=== PATIENT | male | born 1945 | race Caucasian/White ===

== ENCOUNTER 2018-03-20 12:12 | Emergency (ER) | payer OTHER, BC ==
[~2018-03-20] VITALS: Ht 175.3 cm; Wt 88.0 kg
[~2018-03-20 12:12] MED LIST: ASPI-320 PO; BRIM0.2S18 OPB; CARV6.252 PO; DFL150 PO; LATA0.009 OPB; MAGN500C PO; POTA-74 PO; TIMO0.2534 OPB; TORS20TA2 PO
[2018-03-20 12:17] VITALS: TEMP 37.2; Ht 175.3 cm; Wt 88.0 kg
[2018-03-20 14:30] LABS: MEAN CELL VOLUME 98.6 fL (80-100); MEAN CORPUSCULAR HEMOGLOBIN 32.9 pg (25-34); MEAN CORPUSCULAR HGB CONC 33.3 g/dl (32-36); MEAN PLATELET VOLUME 10.5 fL (7.4-10.4); PLATELET COUNT 188 K/uL (130-400); RED CELL DISTRIBUTION WIDTH CV 14.1 % (11.5-14.5); RED CELL DISTRIBUTION WIDTH SD 50.8 fL (36.4-46.3); WHITE BLOOD COUNT 7.34 K/uL (4.8-10.8)
[2018-03-20] MEDS ORDERED: TMPOPS15 OPB (14:32)
[2018-03-20] MEDS ORDERED: TAMS0.4C38 PO (14:32)
[2018-03-20] MEDS ORDERED: PANT40TA PO (14:32)
[2018-03-20] MEDS ORDERED: SILD1TAB31 PO (14:32)
[2018-03-20] MEDS ORDERED: BRIM0.2S18 OPB (14:32)
[2018-03-20] MEDS ORDERED: AMIO200T4 PO (14:32)
[2018-03-20] MEDS ORDERED: CMD/25 PO (14:32)
[2018-03-20] MEDS ORDERED: ASPI81TA28 PO (14:32)
[2018-03-20] MEDS ORDERED: LATA0.5S OPB (14:32)
[2018-03-20] MEDS ORDERED: METO25TA4 PO (14:32)
[2018-03-20] MEDS ORDERED: BUME1TAB PO (14:32)
[2018-03-20 15:00] LABS: ALBUMIN 3.8 gm/dl (3.4-5.0); CALCIUM 8.5 mg/dl (8.5-10.1); CREATININE 0.97 mg/dl (0.60-1.40); POTASSIUM 4.5 mmol/L (3.5-5.1); TOTAL PROTEIN 7.2 gm/dl (6.4-8.2)
--- NOTE | 2018-03-20 15:27 | Psych Management Progress Note ---
Psychiatry Miscellaneous Date of Service: Mar 20, 2018. Case discussed at the request of Dr. Noel at 1415. Patient in ED on [address] [facility] office. Patient was reportedly discharged from services with [facility] as he wrote angry letters re: his 's care. She has been in/out of the hospital/nursing facilities of [facility] and carries a diagnosis of dementia. He is currently denying suicidal ideation but made provocative statements about cutting wires to his cardiac device and per Dr. Noel also pushed at staff. Per Dr. Noel no psychiatric history or psych meds. Patient admits to some memory difficulties but stressed and no prior dx of dementia per Dr. Noel. ED physician expressed concerns about ability to be hospitalized on a psych unit (if necessary) given circumstances of currently being in hospital and patient has LVAD. No other criteria for a medical admission. Encouraged Dr. Noel to ask to identify family for collateral and to involve with safety planning and that sounded like a referral for [facility]. Contacted Stephanie liaison nurse to check with nursing home social worker logistics of admission with LVAD if does ultimately require psychiatric admission. Approximately 30 min later, received call from Karen Mart, YAKOV stating that CM office was familiar with patient from his 's care and has reason to believe there are guns in home. Liaison in route to notify ED team.
[2018-03-20 16:02] VITALS: BP 127/97; PULSE 78; O2SAT 95
--- NOTE | 2018-03-20 19:21 | EMERGENCY ROOM VISIT NOTE ---
History Report prepared by Allen: Zana Montano Under the Supervision of: Dr. Diego Noel M.D. First contact with patient: 13:10 Chief Complaint: MENTAL HEALTH EVALUATION Stated Complaint: 302 History of Present Illness The patient is a 73 year old male who presents to the Emergency Room with a 302 petition against him. The psychiatric case reviewer reports that the patient was seen by Dr. Johnson today. She reports that the patient was speaking to Dr. Johnson about wanting to see his , who is currently a patient at [facility]. In the office, he threatened that he would cut his LVAD device and kill himself. He ran from the scene and was found by police, noting that the patient told the police that he was only concerned for his and had no intention of killing himself. The patient reports that his has been in the hospital at [facility] for a long time, along with two other hospitals and several nursing homes after a fall that broke her pelvis. He complains that they have not taken her out for fresh air since December 05 even though he told them to do so, adding that his is unable to walk. He states he is angry and believes that they are "ruining" his . He reports that prior to his 's hospitalization, he was taking care of his with no problems. He notes that he snuck his out of [facility] on January 25 because they were not taking care of her. He states that he was a patient of [facility], reporting that in the summer of 2014 he believes he acquired a blood clot. He states that his LVAD was placed in the fall of 2014 by [facility], stating that "they know what they are doing." He reports that he has written letters to administrators and threatened to [place] [facility] , and recently was informed that he is no longer allowed to see any providers at [facility]. He states that he instead saw Dr. Johnson today. The patient reiterates that he has no intention of killing himself. He states that he only threatened to do so because he was angry. He denies current or any past intention of self- harm and denies a psychiatric history. Source of History: patient, other (psychiatric case reviewer) Onset: today Position: other (brain (threatening to ) Quality: other (threatening to cut his own LVAD, 302 against him) Timing: other (self-threat at Dr. Ambrose' office) Note: denies wanting to cause self-harm Review of Systems See HPI for pertinent positives & negatives. A total of 10 systems reviewed and were otherwise negative. 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 Family History FHx: Parkinson's disease FHx: gallbladder disease Social History Smoking Status: Never Smoker Alcohol Use: none Drug Use: none Marital Status: Housing Status: lives with family Occupation Status: retired Current/Historical Medications Scheduled Amiodarone Hcl (Cordarone), 200 MG PO DAILY Aspirin (Aspirin Ec), 81 MG PO DAILY Brimonidine Tartrate (Brimonidine Tartrate), 1 DROP OPB BID Bumetanide (Bumex), 1 MG PO DAILY Latanoprost (Xalatan 0.005% Oph Romina), 1 DROPS OPB HS Metoprolol Succinate (Toprol Xl), 25 MG PO HS Pantoprazole (Protonix), 40 MG PO DAILY Sildenafil Citrate (Pulmonary (Sildenafil Citrate), 10 MG PO TID Tamsulosin Hcl (Flomax), 0.4 MG PO DAILY Timolol Maleate (Timolol 0.5% Oph Soln 15 Ml), 1 DROP OPB QAM Warfarin Sod (Coumadin), 2.5 MG PO UD Allergies Coded Allergies: Bevacizumab (Verified Allergy, Unknown, ., 02/03/14) Atorvastatin (Verified Adverse Reaction, Intermediate, MUSCLE PAIN, ) Physical Exam Vital Signs Date Time Temp Pulse Resp B/P (MAP) Pulse Ox O2 Delivery O2 Flow Rate FiO2 03/20/18 16:02 78 18 127/97 95 03/20/18 14:45 120 18 108/79 95 Room Air 03/20/18 12:17 37.2 92 20 162/86 94 Room Air Physical Exam GENERAL: Patient is agitated but cooperative HEENT: No acute trauma, normocephalic atraumatic, mucous membranes moist, no nasal congestion, no scleral icterus. NECK: No stridor, no adenopathy, no meningismus, trachea is midline. LUNGS: Clear to auscultation bilaterally, no wheeze, no rhonchi, breath sounds equal. HEART: Hum noted, consistent with LVAD. ABDOMEN: Soft, nontender, bowel sounds positive, no hernias, no peritonitis. EXTREMITIES: No cyanosis or edema, full range of motion of all the joints without pain or difficulty, no signs for acute trauma. NEUROLOGIC: Oriented x 3, no acute motor or sensory deficits, no focal weakness. SKIN: No rash, no jaundice, no diaphoresis. PSYCH: Cooperative, angry, denies being suicidal, asking to see his . Medical Decision & Procedures Laboratory Results 03/20/18 14:19 03/20/18 14:19 Test 03/20/18 12:31 03/20/18 14:19 Urine Color DK YELLOW Urine Appearance CLEAR (CLEAR) Urine pH 5.0 (4.5-7.5) Urine Specific [place] 1.032 (1.000-1.030) Urine Protein 2+ (NEG) Urine Glucose (UA) 2+ (NEG) Urine Ketones TRACE (NEG) Urine Occult Blood NEG (NEG) Urine Nitrite NEG (NEG) Urine Bilirubin NEG (NEG) Urine Urobilinogen NEG (NEG) Urine Leukocyte Esterase SMALL (NEG) Urine WBC (Auto) 10-30 /hpf (0-5) Urine RBC (Auto) 0-4 /hpf (0-4) Urine Hyaline Casts (Auto) 1-5 /lpf (0-5) Urine Epithelial Cells (Auto) 10-20 /lpf (0-5) Urine Bacteria (Auto) NEG (NEG) Urine Opiates Screen NEG (NEG) Urine Methadone, Qualitative NEG (NEG) Urine Barbiturates NEG (NEG) Urine Phencyclidine (PCP) Level NEG (NEG) Ur Amphetamine/Methamphetamine NEG (NEG) MDMA (Ecstasy) Screen NEG (NEG) Urine Benzodiazepines Screen NEG (NEG) Urine Cocaine Metabolite NEG (NEG) Urine Marijuana (THC) NEG (NEG) Red Blood Count 3.65 M/uL (4.7-6.1) Mean Corpuscular Volume 98.6 fL (80-100) Mean Corpuscular Hemoglobin 32.9 pg (25-34) Mean Corpuscular Hemoglobin Concent 33.3 g/dl (32-36) RDW Standard Deviation 50.8 fL (36.4-46.3) RDW Coefficient of Variation 14.1 % (11.5-14.5) Mean Platelet Volume 10.5 fL (7.4-10.4) Anion Gap 9.0 mmol/L (3-11) Est Creatinine Clear Calc Drug Dose 73.4 ml/min Estimated GFR () 88.8 Estimated GFR (Non- 76.6 BUN/Creatinine Ratio 16.5 (10-20) Calcium Level 8.5 mg/dl (8.5-10.1) Total Bilirubin 0.4 mg/dl (0.2-1) Aspartate Amino Transf (AST/SGOT) 25 U/L (15-37) Alanine Aminotransferase (ALT/SGPT) 32 U/L (12-78) Alkaline Phosphatase 85 U/L (45-117) Total Protein 7.2 gm/dl (6.4-8.2) Albumin 3.8 gm/dl (3.4-5.0) Globulin 3.4 gm/dl (2.5-4.0) Albumin/Globulin Ratio 1.1 (0.9-2) Thyroid Stimulating Hormone (TSH) 1.770 uIu/ml (0.300-4.500) Salicylates Level < 1.7 mg/dl (2.8-20) Acetaminophen Level < 2 ug/ml (10-30) Ethyl Alcohol mg/dL < 3.0 mg/dl (0-3) Laboratory results reviewed by me. ED Course 1316: The patient was evaluated in room A6. A complete history and physical exam was performed. 1419: I consulted Dr. Chisholm - Psychiatry. Based on the patient's story, she does not believe the patient requires a hospital stay, and she will add documentation. An attempt will be made to contact the patient's family, and an official psychiatric case management evaluation will be performed. 1519: The patient's son-in-law is on his way. 1533: The patient's son-in-law reported that the patient does not have ammunition for his guns, and he does not believe the patient is a threat to himself. If there are no further concerns appreciated, the patient can be discharged. 1551: Reevaluated the patient. Discussed results and discharge instructions: He verbalized understanding and agreement. The patient is ready for discharge. Medical Decision Differential diagnosis: Anger, suicidality, thyroid disorder, electrolyte imbalance, drug or alcohol abuse, depression, anxiety, situational depression There is no leukocytosis or concerning anemia. No significant electrolyte abnormality or kidney failure, there is no hepatitis. The patient appears to be in a euthyroid state. Urinalysis shows some contamination, no infection. Urine tox is negative. Aspirin, Tylenol and alcohol levels are undetectable. The patient was felt medically clear. He presents with a 302 petition against him. He was upset, he was angry. He had made a comment that he would kill himself by cutting his LVAD wires. The patient has no history of previous suicidality, he has no psychiatric history. He denies wanting to harm himself at the present. He states he only said this as he was angry and upset because no one will pay attention to him when he talks about his . Patient does not want to stay in the hospital, I do not think he is a suicidal threat. He is more upset and angry about his 's situation than anything. This has been ongoing for over a year and the patient is just very frustrated. I did have him seen by our psychiatry case management team, patient is adamant that he is not suicidal and did verbally consent to his safety. His family members feel he is safe for discharge as well. They will watch over him. There was a mention that the patient does have guns in his home, he has not threatened to harm himself with his gun. His threat today was over his LVAD. The patient did calm down here once he had some time to talk, his blood pressure improved. He was felt stable for discharge. He has agreed to return if feeling suicidal or feeling more depressed. Medication Reconcilliation Current Medication List: was personally reviewed by me Blood Pressure Screening Patient's blood pressure: Elevated blood pressure Blood pressure disposition: Elevated BP felt to be situational Consults Time Called: 1330 Consulting Physician: Dr. Phan Allan Returned Call: [address] Phan Allan. Based on the patient's story, she does not believe the patient requires a hospital stay, and she will add documentation. Impression Primary Impression: Threatening suicide Scribe Attestation The scribe's documentation has been prepared under my direction and personally reviewed by me in its entirety. I confirm that the note above accurately reflects all work, treatment, procedures, and medical decision making performed by me. Departure Information Dispostion Home / Self-Care Referrals Geise, Joseph W., D.O. (PCP) Forms HOME CARE DOCUMENTATION FORM, IMPORTANT VISIT INFORMATION Patient Instructions My [facility] Additional Instructions return if truly feeling suicidal or if you feel depressed lab testing today was all ok
== END 2018-03-20 16:03 | disposition home or self-care (01) ==
LOC: C.EDB 12:13 → C.EDA 16:03
DX: R45.851 Suicidal ideations (principal); R45.4 Irritability and anger; Z79.82 Long term (current) use of aspirin; Z79.01 Long term (current) use of anticoagulants; Z95.811 Presence of heart assist device; Z88.8 Allergy status to other drugs, medicaments and biological substances

== ENCOUNTER 2018-03-22 13:04 | Emergency (ER) | payer OTHER, BC ==
[~2018-03-22] VITALS: Ht 177.8 cm; Wt 88.0 kg
[~2018-03-22 13:04] MED LIST changes: +AMIO200T4 PO; -ASPI-320 PO; +ASPI81TA28 PO; +BUME1TAB PO; -CARV6.252 PO; +CMD/25 PO; -DFL150 PO; -LATA0.009 OPB; +LATA0.5S OPB; -MAGN500C PO; +METO25TA4 PO; +PANT40TA PO; -POTA-74 PO; +SILD1TAB31 PO; +TAMS0.4C38 PO; -TIMO0.2534 OPB; +TMPOPS15 OPB; -TORS20TA2 PO
[2018-03-22 13:18] VITALS: TEMP 37.1; Ht 177.8 cm; Wt 88.0 kg
--- NOTE | 2018-03-22 14:03 | EMERGENCY ROOM VISIT NOTE ---
History Report prepared by Allen: Merritt Solorzano Under the Supervision of: Dr. Reddy Rivera M.D. First contact with patient: 13:37 Chief Complaint: MENTAL HEALTH EVALUATION Stated Complaint: MENTAL HEALTH EVALUATION History of Present Illness The patient is a 73 year old male who presents to the Emergency Room with complaints of constant suicidal ideations beginning a few days ago. The patient states that his problems started on 12/05/2017 when he took his to the emergency department for an infected knee. He notes that his has been admitted to the hospital for the last 90 days. He reports that he has not been able to get his out of the hospital, and he states that he has had several disagreements with hospital staff about the care and treatment of his . The patient states that he has an LVAD and wants to let the batteries in order kill himself. He notes that he cannot stay here and he reports that if he stays , "it's going to kill me." He denies any homicidal ideations. Per case management, the patient threatened to bring a gun into the hospital in order to get his out. The patient denies any CP and SOB. Source of History: patient Onset: a few days ago Position: head Quality: other (suicidal ideations) Timing: constant Associated Symptoms: No chest pain, No SOB Note: The patient denies any homicidal ideations. Review of Systems As above. All other systems reviewed were negative unless otherwise stated in history. At least 10 were reviewed 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 Surgical Problems: (1) History of cholecystectomy Old medical records were reviewed. Nurse's notes were reviewed and I agree with. Family History FHx: Parkinson's disease FHx: gallbladder disease Social History Smoking Status: Never Smoker Alcohol Use: none Drug Use: none Marital Status: Housing Status: lives with family Occupation Status: retired Current/Historical Medications Scheduled Amiodarone Hcl (Cordarone), 200 MG PO DAILY Aspirin (Aspirin Ec), 81 MG PO DAILY Brimonidine Tartrate (Brimonidine Tartrate), 1 DROP OPB BID Bumetanide (Bumex), 1 MG PO DAILY Latanoprost (Xalatan 0.005% Oph Romina), 1 DROPS OPB HS Metoprolol Succinate (Toprol Xl), 25 MG PO HS Pantoprazole (Protonix), 40 MG PO DAILY Sildenafil Citrate (Pulmonary (Sildenafil Citrate), 10 MG PO TID Tamsulosin Hcl (Flomax), 0.4 MG PO DAILY Timolol Maleate (Timolol 0.5% Oph Soln 15 Ml), 1 DROP OPB QAM Warfarin Sod (Coumadin), 2.5 MG PO UD Allergies Coded Allergies: Bevacizumab (Verified Allergy, Unknown, ., 03/22/18) Atorvastatin (Verified Adverse Reaction, Intermediate, MUSCLE PAIN, ) Physical Exam Vital Signs Date Time Temp Pulse Resp B/P (MAP) Pulse Ox O2 Delivery O2 Flow Rate FiO2 03/22/18 15:42 109 16 109/79 97 03/22/18 13:18 37.1 118 20 123/89 98 Room Air Physical Exam General: Non-ill appearing older male in no acute distress.Mildly agitated. HEENT: Normal cephalic atraumatic. Pupils are equal round and reactive to light. Extraocular movements are intact. Oropharynx is pink with moist mucous membranes. No swelling of the mouth lips or tongue. Neck: Supple with a midline trachea. No meningeal signs or stiffness, no JVD or bruits. No Stridor. Chest: Clear to auscultation bilaterally. No wheezes or rhonchi. No increased work of breathing. LVAD in abdomen/chest. Heart: regular rate and rhythm. Abdomen: Soft nontender, nondistended without rebound guarding or rigidity. Extremities: No cyanosis clubbing or edema. No calf tenderness or assymetry Spine/Back. Non tender to palpation. No CVA tenderness Skin: Good turgor without rashes. Neurologic exam: Cranial nerves two through 12 are intact. Motor and sensation are intact and symmetrical throughout. Psych: upset about being in hospital. Medical Decision & Procedures ED Course 1337: Past medical records reviewed. The patient was evaluated in room A8, and a complete history and physical examination were performed. 1419: Case management is attempting to contact the patient's family. 1536: I reevaluated and updated the patient. He wants to go home. 1544: Upon reevaluation, the patient is stable. I discussed the results and treatment plan with him. He verbalized agreement of the treatment plan. The patient was discharged home. Medical Decision Differential diagnoses include: anxiety, suicidal ideations, depression, homicidal ideation, LVAD, and cardiac disease. This patient comes in as described above. He was placed in room A8. He is here for treatment and evaluation of mental health issues. He was brought in after apparently making threats to himself. He does have an LVAD and has batteries with him but not a shipping assistant. He was seen here for similar episodes and Fridays upset about his . He calmed down in the ER and he denies that he wants to hurt himself. he denies that he is a firearm at home. We we did call and talk to his daughter who is feels he is safe to go home as well. At this point, there is certainly a risk with keeping him here, I am worried that we are going to run out of batteries for his LVAD as he does not of a shipping assistant. He does have spare battery here which I encouraged him to change. He does not want to stay at this point I do not feel keep him in the hospital would be helpful and he has no active suicidal or homicidal ideations and again keeping him would be potentially harmful with the LVAD. He will be discharged to home. Medication Reconcilliation Current Medication List: was personally reviewed by me Blood Pressure Screening Patient's blood pressure: Normal blood pressure Blood pressure disposition: Did not require urgent referral Impression Primary Impression: Anxiety Scribe Attestation The scribe's documentation has been prepared under my direction and personally reviewed by me in its entirety. I confirm that the note above accurately reflects all work, treatment, procedures, and medical decision making performed by me. Departure Information Dispostion Home / Self-Care Referrals No Doctor, Assigned (PCP) Forms HOME CARE DOCUMENTATION FORM, IMPORTANT VISIT INFORMATION Patient Instructions My [facility] Additional Instructions Rest REturn if: thoughts of hurting yourself or others, any new problems or concerns Follow-up with your doctor this week for recheck
[2018-03-22 15:42] VITALS: BP 109/79; PULSE 109; O2SAT 97
== END 2018-03-22 15:44 | disposition home or self-care (01) ==
LOC: C.EDB 13:06 → C.EDA 15:44
DX: F41.9 Anxiety disorder, unspecified (principal); Z95.811 Presence of heart assist device; Z79.82 Long term (current) use of aspirin; Z79.01 Long term (current) use of anticoagulants; Z79.899 Other long term (current) drug therapy; Z88.8 Allergy status to other drugs, medicaments and biological substances